=== PATIENT | female | born 1960 | race Caucasian/White ===

== ENCOUNTER 2018-05-25 00:50 | Emergency (ER) | payer BC ==
[~2018-05-25] VITALS: Ht 175.3 cm; Wt 68.0 kg
--- NOTE | 2018-05-25 01:24 | NUR ---
DR. GIL AT BEDSIDE FOR MSE.
--- NOTE | 2018-05-25 02:34 | NUR ---
Patient discharged to home in stable conditon. Written and verbal after care instructions given. Patient verbalizes understanding of instructions. PATIENT LEFT WITH STABLE GAIT.
[2018-05-25 02:35] VITALS: BP 139/78
== END 2018-05-25 02:35 | disposition home or self-care (01) ==
LOC: ER 00:55
DX: B88.9 Infestation, unspecified (principal); F22 Delusional disorders; B95.8 Unspecified staphylococcus as the cause of diseases classified elsewhere; J45.909 Unspecified asthma, uncomplicated; F17.210 Nicotine dependence, cigarettes, uncomplicated
CPT/HCPCS: A4663

== ENCOUNTER 2018-07-04 14:48 | Emergency (ER) | payer BC ==
[~2018-07-04] VITALS: Ht 175.3 cm; Wt 68.0 kg
--- NOTE | 2018-07-04 15:07 | NUR ---
PT WAS EVALUATED BY DR EDDY. PT WAS D/C TO HOME WITH WERBAL INSTRUCTIONS BY DR EDDY.
[2018-07-04 15:09] VITALS: BP 139/87
== END 2018-07-04 15:10 | disposition home or self-care (01) ==
LOC: ER 14:51
DX: R44.3 Hallucinations, unspecified (principal); F22 Delusional disorders; F17.200 Nicotine dependence, unspecified, uncomplicated; J45.909 Unspecified asthma, uncomplicated
CPT/HCPCS: 99281; A4663